=== PATIENT | male | born 1975 | race Caucasian/White ===

== ENCOUNTER 2016-10-15 16:12 | Emergency (ER) | payer OTHER ==
[~2016-10-15] VITALS: Ht 182.8 cm; Wt 90.7 kg
[~2016-10-15 16:12] MED LIST: ALBUTEROL0.09 MG/A2 IH; B12,B-12,B 12500 MC1 PO; CIPROFLOXACIN500 MG PO; DAYPRO600 M1 PO; DOXYCYCLINE MO100 MG PO; HYDROCODONE BIT1 T11 PO; KEFLEX500 MG PO; MOTRIN800 MG PO; NAPROSYN500 MG PO; PERCOCET 325 MG1 TA7 PO; PRILOSEC40 M1 PO; ULTRAM50 MG PO; VICODIN 5/500 505 MG PO; VICODIN 500 MG-1 TAB PO; ZANTAC 300300 MG PO; ZITHROMAX Z PA250 MG PO
[2016-10-15 17:02] LABS: BASO # 0.1 10*3/uL (0.0-0.1); BASO % 0.9 % (0.0-1.0); EOS # 0.1 10*3/uL (0.0-0.4); EOS % 0.8 % (1.0-4.0); HEMATOCRIT 50.2 % (42.0-52.0); HEMOGLOBIN 17.3 g/dl (14.0-18.0); LYMPH # 2.6 10*3/uL (1.3-4.4); LYMPH % 28.4 % (27.0-41.0); MEAN CELL VOLUME 93.3 fl (80.0-94.0); MEAN CORPUSCULAR HGB 32.2 pg (27.0-31.0); MEAN CORPUSCULAR HGB CONC 34.5 g/dl (33.0-37.0); MEAN PLATELET VOLUME 11.4 fl (9.6-12.3); MONO # 0.5 10*3/uL (0.1-1.0); MONO % 5.3 % (3.0-9.0); NEUT # 5.9 10*3/uL (2.3-7.9); NEUT % 64.4 % (47.0-73.0); PLATELET COUNT AUTOMATED 184 10*3/uL (130-400); RED BLOOD COUNT 5.38 10*6/uL (4.50-5.90); RED CELL DISTRI WIDTH 12.6 % (0-14.5); WHITE BLOOD COUNT 9.2 10*3/uL (4.8-10.8)
[2016-10-15 17:19] LABS: ALBUMIN 3.2 gm/dl (3.1-4.5); ALKALINE PHOSPHATASE 70 U/L (45-117); BILIRUBIN, TOTAL 0.4 mg/dl (0.2-1.0); BUN 10 mg/dl (7-24); CARBON DIOXIDE 26 mmol/L (21-32); CHLORIDE 106 mmol/L (98-107); EST GLOM FILT AFRICAN AMERICAN > 60 ml/min; GLUCOSE 118 mg/dL (65-99); POTASSIUM 3.4 mmol/L (3.5-5.1); SGOT/AST 8 IU/L (3-35); SGPT/ALT 15 U/L (12-78); SODIUM 138 mmol/L (136-145); TOTAL PROTEIN 6.4 gm/dL (6.4-8.2)
[2016-10-15 17:56] LABS: BILIRUBIN NEGATIVE (NEGATIVE); BLOOD NEGATIVE (NEGATIVE); CLARITY CLEAR (CLEAR); COLOR YELLOW (YELLOW); GLUCOSE NEGATIVE (NEGATIVE); KETONE NEGATIVE (NEGATIVE); LEUKO ESTERASE NEGATIVE (NEGATIVE); NITRITE NEGATIVE (NEGATIVE); PH 5.5 (5.0-9.0); PROTEIN NEGATIVE (NEGATIVE); UROBILINOGEN 0.2 E.U./dl (0.2-1.0)
[2016-10-15 18:21] LABS: BACTERIA TRACE; WBC 0-2 wbc/hpf (0-5)
[2016-10-15 18:22] LABS: URINE REFLEX COMMENT NO (NO)
[2016-10-15] MEDS ORDERED: BENTYL10 MG PO (18:58)
[2016-10-15] MEDS ORDERED: HYDROCODONE BIT1 T11 PO (18:58)
== END 2016-10-15 19:06 | disposition home or self-care (01) ==
LOC: ED 16:12
PROVIDERS: Physician Assistant
DX: R10.11 Right upper quadrant pain (principal); R11.0 Nausea; F17.200 Nicotine dependence, unspecified, uncomplicated; Z88.0 Allergy status to penicillin

== ENCOUNTER 2017-11-18 13:17 | Emergency (ER) | payer SELFPAY ==
[~2017-11-18] VITALS: Ht 182.8 cm; Wt 129.3 kg
[~2017-11-18 13:17] MED LIST changes: +BENTYL10 MG PO
[2017-11-18] MEDS ORDERED: ACULAR 0.5%3 ML OPH (13:38)
[2017-11-18] MEDS ORDERED: Tobrex Ophth S2.5 ML OPH (13:38)
== END 2017-11-18 14:02 | disposition home or self-care (01) ==
LOC: ED 13:17
DX: S05.01XA Injury of conjunctiva and corneal abrasion without foreign body, right eye, initial encounter (principal); Z88.0 Allergy status to penicillin; X10.2XXA Contact with fats and cooking oils, initial encounter; Y93.G3 Activity, cooking and baking; Y92.89 Other specified places as the place of occurrence of the external cause; Y99.8 Other external cause status

== ENCOUNTER 2018-08-27 16:03 | Emergency (ER) | payer SELFPAY ==
[~2018-08-27] VITALS: Ht 182.8 cm; Wt 129.3 kg
[~2018-08-27 16:03] MED LIST changes: +ACULAR 0.5%3 ML OPH; +Tobrex Ophth S2.5 ML OPH
[2018-08-27] MEDS ORDERED: SEPTDS PO (17:32)
== END 2018-08-27 17:37 | disposition home or self-care (01) ==
LOC: ED 16:03
DX: S61.301A Unspecified open wound of left index finger with damage to nail, initial encounter (principal); F17.200 Nicotine dependence, unspecified, uncomplicated; Z79.899 Other long term (current) drug therapy; Z88.0 Allergy status to penicillin; W26.0XXA Contact with knife, initial encounter; Y93.89 Activity, other specified; Y92.89 Other specified places as the place of occurrence of the external cause; Y99.9 Unspecified external cause status

== ENCOUNTER 2018-10-21 13:22 | Emergency (ER) | payer SELFPAY ==
[~2018-10-21] VITALS: Ht 182.8 cm; Wt 127.0 kg
[~2018-10-21 13:22] MED LIST changes: +SEPTDS PO
== END 2018-10-21 14:14 | disposition home or self-care (01) ==
LOC: ED 13:22
DX: J02.9 Acute pharyngitis, unspecified (principal); Z88.0 Allergy status to penicillin

== ENCOUNTER 2019-11-19 07:17 | Emergency (ER) | payer SELFPAY ==
[~2019-11-19] VITALS: Ht 182.8 cm; Wt 133.8 kg
[2019-11-19 08:35] LABS: BASO # 0.1 10*3/uL (0.0-0.1); BASO % 1.2 % (0.0-1.0); EOS # 0.1 10*3/uL (0.0-0.4); EOS % 1.4 % (1.0-4.0); HEMATOCRIT 52.4 % (42.0-52.0); LYMPH # 2.4 10*3/uL (1.3-4.4); LYMPH % 26.4 % (27.0-41.0); MEAN CELL VOLUME 93.2 fl (80.0-94.0); MEAN CORPUSCULAR HGB 31.1 pg (27.0-31.0); MEAN CORPUSCULAR HGB CONC 33.4 g/dl (33.0-37.0); MEAN PLATELET VOLUME 11.2 fl (9.6-12.3); MONO # 0.4 10*3/uL (0.1-1.0); MONO % 4.7 % (3.0-9.0); NEUT % 65.9 % (47.0-73.0); PLATELET COUNT AUTOMATED 261 10*3/uL (130-400); RED BLOOD COUNT 5.62 10*6/uL (4.50-5.90); RED CELL DISTRI WIDTH 12.6 % (0-14.5); WHITE BLOOD COUNT 9.2 10*3/uL (4.8-10.8)
[2019-11-19 08:52] LABS: ALBUMIN 3.4 gm/dl (3.1-4.5); ALKALINE PHOSPHATASE 90 U/L (45-117); BUN 8 mg/dl (7-24); CHLORIDE 108 mmol/L (98-107); CREATININE 0.96 mg/dL (0.70-1.30); LIPASE 90 U/L (73-393); POTASSIUM 3.9 mmol/L (3.5-5.1); SGOT/AST 16 IU/L (3-35); SGPT/ALT 29 U/L (12-78); SODIUM 138 mmol/L (136-145); TOTAL PROTEIN 7.6 gm/dL (6.4-8.2)
[2019-11-19] MEDS ORDERED: PHENERGAN25 M3 PO (09:53)
== END 2019-11-19 09:59 | disposition home or self-care (01) ==
LOC: ED 07:17
PROVIDERS: Emergency Medicine
DX: R11.2 Nausea with vomiting, unspecified (principal); F17.200 Nicotine dependence, unspecified, uncomplicated; Z88.0 Allergy status to penicillin; Z79.899 Other long term (current) drug therapy; Z20.828 Contact with and (suspected) exposure to other viral communicable diseases